=== PATIENT | female | born 1970 ===

== ENCOUNTER 2020-11-24 12:36 | Day surgery (SDC) | payer OTHER ==
[2020-11-24] MEDS ORDERED: TYLENOL ARTHRI650 MG PO (15:25)
[2020-11-24] MEDS ORDERED: ULTRAM50 MG PO (15:25)
[2020-11-24] MEDS ORDERED: NEURONTIN300 MG PO (15:25)
[2020-11-24] MEDS ORDERED: MIRALAX17 GM PO (15:25)
== END 2020-11-24 18:30 | disposition home or self-care (01) ==
LOC: CIR.AMB 12:36
PROVIDERS: ATTEND Surgery
DX: K43.6 Other and unspecified ventral hernia with obstruction, without gangrene (principal); Z20.822 Contact with and (suspected) exposure to COVID-19